=== PATIENT | male | born 1990 | race Caucasian/White ===

== ENCOUNTER 2017-02-09 19:10 | Emergency (ER) | payer MEDICAID ==
[~2017-02-09] VITALS: Ht 185.4 cm; Wt 84.6 kg
[2017-02-09 19:11] VITALS: BP 126/80
== END 2017-02-09 19:56 | disposition left against medical advice (07) ==
LOC: ED 19:50
DX: K02.9 Dental caries, unspecified (principal); Z90.89 Acquired absence of other organs
CPT/HCPCS: 99283